=== PATIENT | male | born 1945 | race Caucasian/White ===

== ENCOUNTER 2019-11-02 14:08 | Outpatient (CLI) | payer MEDICARE, SELFPAY ==
--- NOTE | 2019-11-02 14:15 | CT_ITS ---
WS: [id number] CT ABDOMEN PELVIS TECHNIQUE: Noncontrast CT of the abdomen and contrast-enhanced CT of the abdomen and pelvis with jess nal and sagittal reformatted images. CLINICAL INFORMATION: HEMATURIA COMPARISON: None. DLP: 2831.[address] scans at [facility] use at least one of these dose optimization techniques: automat ed exposure control; mA and/or kV adjustment per patient size (includes targeted exams where dose is matched to clinical indication); or iterative reconstruction. FINDINGS: Mild diffuse fatty infiltration of the liver. Small right hepatic cyst measuring 7 mm. Normal portal vein and splenic vein. Normal spleen. Normal GE junction. Fatty atrophy of the pancreas. Slight bibas ilar atelectasis. Adrenal glands are normal. No hydronephrosis. Small bilateral renal cysts. Renal co rtical atrophy bilaterally. Incidental retroaortic left renal vein. No periaortic lymphadenopathy. Aortic calcification. Calcified enlarged prostate measuring 5.9 x 5.1 CM. Sigmoid diverticulosis. No evidence of acute diverticulitis. Normal renal parenchymal enhancement. Normal excretion on the delayed images. Normal ureters. Unremar kable bladder. Advanced spondylitic changes lumbar spine with disc space narrowing L1-L5. CT/CT abdomen pelvis wo/w [id number] IMPRESSION: 1. Liver is normal in appearance. Small right hepatic cyst measuring 7 mm. 2. Normal renal parenchymal enhancement with cortical atrophy. Normal excretio n on the delayed images. 3. Ureters are normal. 4. Enlarged calcified prostate measuring 5.9 x 5.1 CM. Recommend correlation P SA. 5. No abdominal or pelvic lymphadenopathy. 6. Diverticulosis. No evidence of acute diverticulitis. 7. Advanced spondylitic changes lumbar spine.
[2019-11-02 15:11] LABS: Blood Urea Nitrogen 15 mg/dL (8-23)
[2019-11-02] MEDS: iohexol 300 mg/mL 100 mL Btl IV (15:20)
== END 2019-11-02 14:09 | disposition home or self-care (01) ==
LOC: RADWPI 14:12
PROVIDERS: Radiology Neuroradiology; Family Provider Emergency Medicine Emergency Medical Services; PCP Emergency Medicine Emergency Medical Services; Visit Provider Physician Assistant
DX: Q55.4 Other congenital malformations of vas deferens, epididymis, seminal vesicles and prostate (principal); K57.90 Diverticulosis of intestine, part unspecified, without perforation or abscess without bleeding; M47.896 Other spondylosis, lumbar region; R31.9 Hematuria, unspecified; K76.89 Other specified diseases of liver; G31.9 Degenerative disease of nervous system, unspecified; N40.0 Benign prostatic hyperplasia without lower urinary tract symptoms
CPT/HCPCS: 74178; 82565; 84520; Q9967

== ENCOUNTER 2019-11-10 12:09 | Emergency (ER) | payer OTHER, MEDICARE, SELFPAY ==
[2019-11-10 12:41] VITALS: BP 148/75; PULSE 73; RESP 16; TEMP 36.7; O2SAT 96; BMI 31.7
--- NOTE | 2019-11-10 13:24 | XR_ITS ---
WS: [id number] Acute abdomen series, 11/10/2019 Clinical Data: constipation Comparison: None. Findings: In the chest there are no nodules, masses or effusions. The heart is normal. The pulmonary vascularity is not increased. The aortic arch and descending aorta show mild tortuosity No free air is seen beneath the diaphragms. No abnormal intra-abdominal masses or calcifications are seen. There is air in the stomach, small bowel and colon with scattered air-fluid levels in the small bowel and ascending colon. There is a large amount of fecal material throughout the colon. No obstru ction is seen. There is a dextroscoliosis with degenerative change and degenerative disc disease of t he lumbar spine. XR/XR acute abdomen series 31657 Impression: 1. Large amount of fecal material throughout the colon. 2. Moderate generalized ileus.
--- NOTE | 2019-11-10 14:53 | ED_ITS ---
Entered by Lesly Marshall, acting as scribe for Bruce Poe MD, [facility] Nov 10, 2019 12:09 HPI - General Adult General: Chief complaint: General Medical Stated complaint: constipation Time Seen by Provider: 11/10/19 14:47 Source: patient Mode of arrival: ambulatory Limitations: no limitations History of Present Illness: HPI narrative: 73 yo Male presents to ED with complaint of constipation. Pt states that this has been going on for the last several months. Pt states that he tried to get an appointment with the [place] doctor but they told him to come to the ED to get it figured out. Pt states that he takes Linzess. Pt states that his last bowel movement was Saturday around noon. MD complaint: Constipation Onset (ago): month(s) Location: abdomen Radiation: non-radiation Pain Consistency: intermittent Relieving factors: medication Exacerbating factors: none Associated symptoms: Deny chest pain, decreased appetite, dyspnea, headache(s), nausea, rash, palpitations or vomiting Treatments prior to arrival: none Review of Systems General: Reports: 10 or more systems reviewed and unremarkable except in HPI and below Const: Denies: fever, chills or body aches Eyes: Denies: change in vision or blurry vision ENMT: Denies: throat pain, enlarged tonsils, painful swallowing, hoarseness, mouth pain or swelling of lips/tongue Card: Denies: chest pain, palpitations, irregular heart rhythm, edema or swelling of feet/ankles Resp: Denies: shortness of breath, productive cough or non-productive cough GI: Reports: constipation; Denies: nausea or vomiting : Denies: flank pain, painful urination, urinary frequency, urinary urgency or urinary hesitancy Musc: Denies: neck pain, back pain or extremity swelling Skin/Breast: Denies: rash, itching or redness Neuro: Denies: headache, numbness in extremities or weakness in extremities Endo: Denies: excessive urination, excessive thirst or tired all the time PFS ED 2 PFSH: Social History Smoking and tobacco status: never smoked Physical Exam Const: COMMON NORMALS: no apparent distress, average body habitus, oriented x3 , no limitations, healthy appearing, alert and well nourished HENMT: COMMON NORMALS: normocephalic, head/scalp atraumatic and moist oral mucous membranes HEAD & SCALP: normocephalic and atraumatic Eye: COMMON NORMALS: PERRL, EOMs intact bilaterally, conjunctivae normal and no scleral icterus CONJUNCTIVA: Yes conjunctivae normal PUPIL: Yes PERRL Neck/C-Spine: COMMON NORMALS: full ROM, supple, no meningeal signs, no JVD and no carotid bruits Chest: COMMONS NORMALS: inspection of chest normal and palpation of chest normal Resp: COMMON NORMALS: normal respiratory effort, no retractions, no use of a ccessory muscles, clear to auscultation bilaterally and percussion normal AUSCULTATION: clear to auscultation bilaterally PERCUSSION: percussion normal Cardio: COMMON NORMALS: no JVD, regular rate, regular rhythm, S1 normal heart sound, S2 normal heart sound, no gallops, no clicks, no murmurs, no rub and peripheral pulses 2+ throughout RATE: regular rate RHYTHM: regular rhythm HEART SOUNDS: S1 normal and S2 normal PERIPHERAL PULSES: pulses 2+ throughout GI: COMMON NORMALS: normal to inspection, nondistended, normoactive bowel sounds, soft to palpation, non-tender, no hepatosplenomegaly, no masses and no bruits PALPATION: Yes soft and Yes no hepatosplenomegaly : COMMON NORMALS: Yes no CVA tenderness BLADDER/KIDNEY EXAM: Yes no CVA tenderness Back/Pelvis: COMMON NORMALS: no CVA tenderness Extremity: COMMON NORMALS: normal to inspection, full ROM, normal capillary refill, no calf tenderness and no pedal edema Neuro: COMMON NORMALS: oriented x3 SENSORIUM/ORIENTATION: Yes alert MENINGEAL SIGNS: Yes no meningeal signs Skin: COMMON NORMALS: no rashes or lesions noted, no wounds, skin turgor normal, no jaundice, no petechiae and no mottling GENERAL SKIN EXAM: no rashes or lesions noted and turgor normal Course Vital Signs: Vital signs: Vital Signs Temperature 98.0 F 11/10/19 12:41 Pulse Rate 67 11/10/19 15:21 Respiratory Rate 16 11/10/19 12:41 Blood Pressure 120/72 11/10/19 15:21 Pulse Oximetry 94 11/10/19 15:21 MDM - General Adult MDM Narrative: Medical decision making narrative: 73-year-old male who has chronic constipation. He called his primary care provider's office to ask for evaluation of the cause of the constipation and he was asked to come in here. He has no new complaints today. His examination is unremarkable. Abdominal x- ray shows increased fecal load. He was offered an enema here in the emergency department but the patient says he will go home and take Linzess which usually works for him. He is advised to ask his primary care provider to refer him to a vegetable picker for further evaluation of constipation. He voiced understanding and is in agreement with the plan Medical Records: Attestation: I reviewed the patient's medical records. Imaging Data^: XR Chest/Abdomen: Radiologist's impression: [place] [address] XRay Report Signed Patient: Diana Rico #: [id number] : 1946Acct#:[id number] Age/Sex: 73 / MADM Date: 11/10/19 Loc: ERRoom/Bed: Attending Dr: Ordering Provider/Ordering MD: Horacio Damon NP Date of Service: 11/10/19 Procedure(s): XR acute abdomen series [id number] Accession Number(s): [id number] Report Number: [id number] WS: [id number] Acute abdomen series, 11/10/2019 Clinical Data: constipation Comparison: None. Findings: In the chest there are no nodules, masses or effusions. The heart is normal. The pulmonary vascularity is not increased. The aortic arch and descending aorta show mild tortuosity No free air is seen beneath the diaphragms. No abnormal intra-abdominal masses or calcifications are seen. There is air in the stomach, small bowel and colon with scattered air-fluid levels in the small bowel and ascending colon. There is a large amount of fecal material throughout the colon. No obstruction is seen. There is a dextroscoliosis with degenerative change and degenerative disc disease of the lumbar spine. XR/XR acute abdomen series 97098 Impression: 1. Large amount of fecal material throughout the colon. 2. Moderate generalized ileus. Dictated By:Mayra Phillips MD Signed By:Mayra Phillips Date/Time:11/10/19 1421 DD/ 1419 Discharge Plan Discharge Patient Disposition: Home, Self-Care Clinical Impression: Constipation Qualifiers: Constipation type: other constipation type Qualified Code(s): K59.09 - Other constipation Condition: Stable Prescriptions: Continued simvastatin 80 mg Tablet 80 mg PO DAILY RF: 0 omeprazole 20 mg Capsule,Delayed Release(Dr/Ec) 20 mg PO DAILY RF: 0 citalopram 40 mg Tablet 40 mg PO DAILY RF: 0 enalapril maleate 20 mg Tablet 20 mg PO DAILY RF: 0 glipizide 10 mg Tablet 10 mg PO DAILY RF: 0 hydrocodone-acetaminophen 7.5-325 mg Tablet 1 tab PO TID PRN (Reason: Pain) RF: 0 metformin 1,000 mg Tablet 1,000 mg PO DAILY RF: 0 hydrochlorothiazide 25 mg Tablet 25 mg PO DAILY RF: 0 dicyclomine 10 mg Capsule 10 mg PO QID RF: 0 cholecalciferol (vitamin D3) [Vitamin D3] 50 mcg (2,000 unit) Capsule 50 mcg PO DAILY RF: 0 omega 2-vyu-ynq-fish oil [Fish Oil] 1,000 mg (120 mg-180 mg) Capsule 1 cap PO DAILY RF: 0 Linzess 72 mcg Capsule 72 mcg PO DAILY PRN (Reason: Stomach Upset) RF: 0 aspirin 81 mg Tablet,Delayed Release (Dr/Ec) 81 mg PO DAILY RF: 0 Discharge Orders: Discharge Order (Routine); Ordered 11/10/19 Ordered By: Bruce Poe Referrals: Sreekanth Nunez DO [Primary Care Provider] - 1-3 days (For referral to gastroenterology) Patient Instructions: Constipation (ED) Activity Restrictions/Additional Instructions: Return for any new or worsening symptoms. Follow-up with your primary care provider within 3 days for referral to a vegetable picker. They the specialists that deals with constipation and similar issues. Drink plenty of fluids to keep well-hydrated. Continue medications as prescribed. Discharge Date/Time: 11/10/19 15:21 Coding Level of Care Code ED Continuous Improvement Specialist for Chg Fwd Exam Comprehensive The documentation recorded by the Joanna mckeon Carmen, accurately reflects the service I personally performed and the decisions made by Lui mcfadden Adegoke I, MD, [facility] Nov 10, 2019 12:09
[2019-11-10 15:21] VITALS: BP 120/72; PULSE 67; O2SAT 94
== END 2019-11-10 15:21 | disposition home or self-care (01) ==
PROVIDERS: Emergency Provider Family Medicine; Family Provider Emergency Medicine Emergency Medical Services; PCP Emergency Medicine Emergency Medical Services
DX: K59.09 Other constipation (principal); K56.7 Ileus, unspecified
CPT/HCPCS: 74022; 99281; 99282

== ENCOUNTER 2020-06-10 10:51 | Emergency (ER) | payer OTHER, MEDICARE, SELFPAY ==
[2020-06-10 10:52] VITALS: BP 165/83; PULSE 72; RESP 18; TEMP 36.6; O2SAT 97; BMI 31.6
--- NOTE | 2020-06-10 13:02 | W.ED.ABDPA2 ---
HPI - Abdominal Pain General: Chief Complaint: Abdominal Pain Stated Complaint: flu symptoms Time Seen by Provider: 06/10/20 11:54 Source: patient Mode of arrival: ambulatory Limitations: no limitations History of Present Illness: HPI narrative: 74 yo male [facility]. [facility] and [facility] with them his chronic nausea and then also discussed with me his concern for exposure to COVID even though patient is asymptomatic [facility] advised patient to come to the emergency department for testing. Patient denies any nausea vomiting or abdominal pain. Patient denies any fever. Patient denies any chest pain or shortness of breath. Patient denies any generalized malaise. Patient denies any headache. Patient states he does not currently have any symptoms but is concerned about his exposure and is requesting testing. Associated Symptoms: Denies constipation, diarrhea, dysuria, fever(s), nausea, syncope and vomiting Review of Systems General: Reports: 10 or more systems reviewed and unremarkable except in HPI and below Const: Denies: fever(s) or body aches Eyes: Denies: change in vision or blurry vision ENMT: Denies: throat pain or odynophagia Card: Denies: chest pain, palpitations, irregular heart rhythm, lightheadedness or syncope Resp: Denies: dyspnea, productive cough, non-productive cough, wheezing, stridor, pain on inspiration, hemoptysis or chest congestion GI: Denies: abdominal pain, nausea, vomiting, diarrhea or constipation : Denies: flank pain, difficulty urinating, dysuria, urinary frequency or urinary urgency Musc: Denies: neck pain, back pain or extremity pain Skin/Breast: Denies: rash Neuro: Denies: headache(s) or dizziness Psych: Denies: anxiety, suicidal ideation or homicidal ideation [facility] ED PFSH: Social History Smoking and tobacco status: never smoked Physical Exam Const: COMMON NORMALS: no acute distress, average body habitus, patient oriented x3, no limitations, healthy appearing, alert and well nourished HENMT: COMMON NORMALS: normocephalic, atraumatic, hearing grossly normal bilaterally, external ears normal, EAC's normal, TM's normal bilaterally, Normal external nose present, Normal nasal mucous membranes and turbinates present, moist oral mucous membranes, oropharynx normal, dentition normal and gingiva normal HEAD & SCALP: normocephalic and atraumatic NOSE: Normal external nose present and Normal nasal mucous membranes and turbinates present EXTERNAL EAR: Yes external ears normal EXTERNAL AUDITORY CANAL: EAC's normal TYMPANIC MEMBRANE: TM's normal bilaterally Eye: COMMON NORMALS: Equal, round and reactive pupils present, EOMs intact bilaterally, conjunctivae normal, no scleral icterus, no papilledema, normal visual mcclellan by confrontation and fundi normal bilaterally CONJUNCTIVA: Yes conjunctivae normal PUPIL: Yes Equal, round and reactive pupils present DIRECT OPHTHALMOSCOPY: Yes no papilledema and Yes fundi normal bilaterally Neck/C-Spine: COMMON NORMALS: full ROM, no lymphadenopathy, supple, no meningeal signs, no JVD, Thyroid normal and No carotid bruits THYROID: Thyroid normal Lymph: LYMPHATIC: no lymphadenopathy noted Chest: COMMONS NORMALS: normal inspection of the chest, normal palpation of entire chest wall, normal inspection of the breasts and normal palpation of the breasts Resp: COMMON NORMALS: normal respiratory effort, No retractions, No use of accessory muscles, clear to auscultation bilaterally and percussion normal AUSCULTATION: clear to auscultation bilaterally PERCUSSION: percussion normal Cardio: COMMON NORMALS: no JVD, regular rate, regular rhythm, S1 normal heart sound present, S2 normal heart sound present, No gallops present (Cardio), No clicks present (Cardio), No murmurs present (Cardio), No rub (Cardio) and Peripheral pulses 2+ throughout RATE: regular rate RHYTHM: regular rhythm HEART SOUNDS: S1 normal heart sound present and S2 normal heart sound present PERIPHERAL PULSES: Peripheral pulses 2+ throughout GI: COMMON NORMALS: Normal to inspection, nondistended, normoactive bowel sounds present, Soft to palpation, non-tender, No hepatosplenomegaly present, no masses and no bruits PALPATION: Yes Soft to palpation and Yes No hepatosplenomegaly present : COMMON NORMALS: Yes no CVA tenderness, Yes normal external exam, Yes Testes normal, Yes scrotum normal, Yes no scrotal swelling and Yes No hernias present BLADDER/KIDNEY EXAM: Yes no CVA tenderness Back/Pelvis: COMMON NORMALS: no CVA tenderness, thoracic and lumbar spine normal to inspection, no thoracic nor lumbar tenderness, thoraco-lumbar ROM normal and straight leg raise negative bilaterally Extremity: COMMON NORMALS: normal to inspection, full ROM, capillary refill normal, no joint enlargement, no clubbing, cyanosis or edema, no calf tenderness and no pedal edema Neuro: COMMON NORMALS: patient oriented x3 SENSORIUM/ORIENTATION: Yes alert MENINGEAL SIGNS: Yes no meningeal signs Psych: COMMON NORMALS: mental status grossly normal, Normal thought process present, cooperative, normal affect, speech normal, activity/motor behavior normal, denies hallucinations, denies homicidal ideation and denies suicidal ideation SPEECH: Yes normal speech THOUGHT PROCESS: Normal thought process present Skin: COMMON NORMALS: no rashes or lesions noted, no wounds, turgor normal, no jaundice, no petechiae and no mottling GENERAL SKIN EXAM: no rashes or lesions noted and turgor normal Course Vital Signs: Vital signs: Vital Signs Temperature 97.9 F 06/10/20 10:52 Pulse Rate 72 06/10/20 10:52 Respiratory Rate 18 06/10/20 10:52 Blood Pressure 165/83 06/10/20 10:52 Pulse Oximetry 97 06/10/20 10:52 MDM - Abdominal Pain MDM Narrative: Medical decision making narrative: 74 yo male patient [facility]. [facility] and discussed with them his chronic nausea and then also discussed with me his concern for exposure to COVID even though patient is asymptomatic [facility] advised patient to come to the emergency department for testing. Patient denies any nausea vomiting or abdominal pain. Patient denies any fever. Patient denies any chest pain or shortness of breath. Patient denies any generalized malaise. Patient denies any headache. Patient states he does not currently have any symptoms but is concerned about his exposure and is requesting testing. Patient is well-appearing nontoxic and in no acute distress. Patient has a normal adult physical exam. We did test patient for COVID I advised patient he needs to self quarantine until results of test are known return precautions advised home care instructions reviewed patient is medically cleared and appropriate for discharge Differential Diagnosis: Differential diagnosis abdominal pain: Likely abdominal pain, constipation and gastroenteritis Medical Records: Attestation: I reviewed the patient's medical records. Lab Data: Attestation: I reviewed the patient's lab results. Discharge Plan Discharge Patient Disposition: Home Clinical Impression: Close exposure to COVID-19 virus Condition: Stable Prescriptions: No Action simvastatin 80 mg Tablet 80 mg PO DAILY RF: 0 omeprazole 20 mg Capsule,Delayed Release(Dr/Ec) 20 mg PO DAILY RF: 0 citalopram 40 mg Tablet 40 mg PO DAILY RF: 0 enalapril maleate 20 mg Tablet 20 mg PO DAILY RF: 0 glipizide 10 mg Tablet 10 mg PO DAILY RF: 0 hydrocodone-acetaminophen 7.5-325 mg Tablet 1 tab PO TID PRN (Reason: Pain) RF: 0 metformin 1,000 mg Tablet 1,000 mg PO DAILY RF: 0 hydrochlorothiazide 25 mg Tablet 25 mg PO DAILY RF: 0 dicyclomine 10 mg Capsule 10 mg PO QID RF: 0 cholecalciferol (vitamin D3) [Vitamin D3] 50 mcg (2,000 unit) Capsule 50 mcg PO DAILY RF: 0 omega 6-olw-wqg-fish oil [Fish Oil] 1,000 mg (120 mg-180 mg) Capsule 1 cap PO DAILY RF: 0 Linzess 72 mcg Capsule 72 mcg PO DAILY PRN (Reason: Stomach Upset) RF: 0 aspirin 81 mg Tablet,Delayed Release (Dr/Ec) 81 mg PO DAILY RF: 0 Discharge Orders: Discharge Order (Routine); Ordered 06/10/20 Ordered By: Amber Holguin Referrals: Sreekanth Nunez, [Primary Care Provider] - Discharge Diet: Advance as tolerated Discharge Activity: Resume usual activity Activity Restrictions/Additional Instructions: Please self Quarantine until test results are confirmed We will call you with any positive results Please return with any concerning symptoms Discharge Date/Time: 06/10/20 13:13 Coding Level of Care Code ED Integration Analyst for Jacqueline Rubi
[2020-06-11 23:33] LABS: Quest SARS-CoV-2 RNA NOT DETECTED (NOT DETECTED)
--- NOTE | 2020-06-12 08:20 | PC.NURSE ---
Pt called and notified of negative COVID result.
== END 2020-06-10 13:13 | disposition home or self-care (01) ==
PROVIDERS: Emergency Provider Registered Nurse; PCP Emergency Medicine Emergency Medical Services
DX: Z20.818 Contact with and (suspected) exposure to other bacterial communicable diseases (principal); Z79.82 Long term (current) use of aspirin; Z79.84 Long term (current) use of oral hypoglycemic drugs
CPT/HCPCS: 12345; 87635; 99281; 99282

== ENCOUNTER 2021-01-10 13:02 | Outpatient (CLI) | payer OTHER, SELFPAY ==
--- NOTE | 2021-01-10 13:00 | MR_ITS ---
WS: [id number] Exam: MR lumbar spine wo con* [id number] Date/Time of Exam: 01/10/2021 1:09 PM Reason For Exam: LOW BACK PAIN W R LEG RADICULOPATHY The lumbar spine is evaluated in the sagittal and axial planes with multiple imaging sequences. There is moderately severe spinal canal stenosis at the L2-3 disc level secondary to posterior disc b ulge osteophyte complex. There is moderate spinal canal stenosis at the L4-5 disc level. There is mil d spinal canal stenosis noted at the L1-2 and L3-4 disc levels. There is bilateral neural foraminal s tenosis at L5-S1. The remaining neural foramina demonstrated no significant stenosis. Advanced degene rative disc changes at all levels and spondylosis. The conus medullaris and cauda equina are unremark able. Advanced facet DJD at all levels. Dextroscoliosis of the lumbar spine. Small lipoma in the left psoas muscle. The paraspinal and retroperitoneal soft tissue structures are otherwise unremarkable. MR/MR lumbar spine wo con* [id number] IMPRESSION: 1. Moderately severe spinal canal stenosis at L2-3. 2. Moderate spinal canal stenosis at the L4-5 disc level. Mild spinal canal rashad nosis at L1-2 and L3-4. 3. Bilateral neural foraminal stenosis at L5-S1. 4. Advanced degenerative changes and scoliosis.
== END 2021-01-10 13:03 | disposition home or self-care (01) ==
PROVIDERS: PCP Emergency Medicine Emergency Medical Services; Visit Provider Emergency Medicine Emergency Medical Services
DX: M54.16 Radiculopathy, lumbar region (principal); M48.061 Spinal stenosis, lumbar region without neurogenic claudication; M48.07 Spinal stenosis, lumbosacral region
CPT/HCPCS: 72148

== ENCOUNTER → 2021-02-14 15:35 | Outpatient (BNVA) | payer OTHER, SELFPAY | PROVIDERS: PCP Emergency Medicine Emergency Medical Services; Referring Provider Emergency Medicine Emergency Medical Services; Visit Provider Orthopaedic Surgery | DX: M48.062 Spinal stenosis, lumbar region with neurogenic claudication | CPT/HCPCS: 72120 ==

== ENCOUNTER → 2021-04-12 10:25 | Outpatient (BNVA) | payer OTHER, SELFPAY | PROVIDERS: PCP Emergency Medicine Emergency Medical Services; Visit Provider Orthopaedic Surgery | DX: Z01.818 Encounter for other preprocedural examination (principal); Z20.822 Contact with and (suspected) exposure to COVID-19 | CPT/HCPCS: 87635 ==

== ENCOUNTER 2021-04-17 08:36 | Day surgery (SDC) | payer OTHER, SELFPAY ==
[2021-04-13 10:27] VITALS: BMI 31.0
--- NOTE | 2021-04-13 10:33 | ECG_ITS ---
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 Measurements Intervals [place] Rate: 65 P: 70 ND: 168 QRS: 15 QRSD: 102 T: 41 QT: 402 QTc: 419 Interpretive Statements SINUS RHYTHM No previous ECG available for comparison Electronically Signed On 04-13-2021 14:46:27 CDT by Frandy Garcia M.D. [email or web address]
[2021-04-13 11:07] LABS: Basophils % 0.3 %; Eosinophils # 0.7 10^3/uL (0.0-0.8); Eosinophils % 10.7 %; Hematocrit 43.7 % (42.0-52.0); Hemoglobin 14.2 g/dL (11.7-16.6); Lymphocytes # 1.4 10^3/uL (0.8-4.8); Lymphocytes % 21.9 %; Mean Corpuscular HGB Conc 32.5 g/dL (30.0-36.0); Mean Corpuscular Hemoglobin 28.9 pg (28.0-34.0); Mean Platelet Volume 9.7 fL (7.4-10.4); Monocytes # 0.5 10^3/uL (0.2-0.9); Monocytes % 8.3 %; Neutrophils % 58.3 %; Nucleated Red Blood Cells % 0 %; Platelet Count 285 10^3/cmm (130-400); Red Blood Count 4.91 10^6/uL (4.1-5.3); Red Cell Distribution Width 12.5 % (12.1-15.1); White Blood Count 6.5 10^3/uL (4.0-10.0)
--- NOTE | 2021-04-13 11:09 | P.ANESASSM_ITS ---
Pre-Anesthetic Assessment Pre-Anesthetic Assessment: Height/Weight: Height 1.75 m Weight 95.254 kg Preop Diagnosis: lumbar stenosis Proposed Procedure: Operation Date: 04/17/21 07:00 Proposed Procedures p Lumbar Spine Decompression L4/5 5/S1 M48.062(Not Applicable) - Trent Ndiaye, DO Was Beta Monique taken within 24 hours: N/A Was Clonidine taken within 24 hours: N/A Social: Social History: No alcohol and No tobacco Exam: Pre-Anes Outpt Exam: alert, oriented x 3, clear to auscultation bilaterally and regular rate & rhythm Airway: Submandibular: WNL Cervical ROM: WNL MP: 2 Dentition: Chipped Additional comments: Poor dentition CV/HEM: CV/HEM: HTN GI: GI: GERD Metabolic: Metabolic: DM and Hyperlipidemia Musc/skel: Musc/skel: Lower Back Pain Anesthetic Plan: ASA status: 3 Anesthesia: General Risk of > 500 ml blood loss (7ml/kg in children): No PFSH Anesthesia PFSH: Medical History Depression Diabetes HTN (hypertension) Hyperlipidemia Family History Other Diabetes Social History Smoking and tobacco status: never smoked Data Anesthesia CBC & Chem 7: 04/13/21 10:55 04/13/21 10:55 Other Labs: Laboratory Results - last 48 hr 04/13/21 10:55 WBC 6.5 RBC 4.91 Hgb 14.2 Hct 43.7 MCV 89.0 MCH 28.9 MCHC 32.5 RDW 12.5 Plt Count 285 MPV 9.7 Neut % (Auto) 58.3 Lymph % (Auto) 21.9 [place] % (Auto) 8.3 Eos % (Auto) 10.7 Baso % (Auto) 0.3 Neut # (Auto) 3.80 Lymph # (Auto) 1.4 [place] # (Auto) 0.5 Eos # (Auto) 0.7 Baso # (Auto) 0.0 Nucleated RBC % (auto) 0 Nucleated RBCs # 0.0 Cardiac Studies: No Data to Display
[2021-04-13 11:27] LABS: Anion Gap 14.2 (5-19); Blood Urea Nitrogen 24 mg/dL (8-23); Calcium 8.2 mg/dL (8.5-10.5); Carbon Dioxide 24 mmol/L (22-29); Chloride 101 mmol/L (98-107); Glucose 202 mg/dL (65-115); Osmolality Calculated 290 mOsm/kg (285-295); Potassium 4.2 mmol/L (3.5-5.1); Sodium 135 mmol/L (136-145)
[2021-04-17] VITALS (7 sets, daily range): BP systolic 120–146; BP diastolic 75–95; PULSE 67–92; RESP 16–18; TEMP 36.4–36.7; O2SAT 92–100
--- NOTE | 2021-04-17 | XR_ITS ---
WS: [id number] Lumbar spine, C-arm fluoroscopy, 04/17/2021 Clinical Data: RAFI PICS Comparison: Lumbar spine, 02/14/2021. Findings: Dr. Ndiaye performed a lumbar decompression at L4-L5 and L5-S1. XR/XR lumbar spine 1V [id number] Impression: Lumbar decompression at L4-L5 and L5-S1.
--- NOTE | 2021-04-17 | SCC_ITS ---
Procedure Done: 1. Right L4/5 laminectomy with partial facetecomy 2. Right L5/S1 laminectomy with partial facetectomy 25.2 seconds of fluoroscopic guidance, for a cumulative dose of 12.73 mGy, was provided to Dr. Ndiaye by the radiology department. C-arm images of the lumbar spine were saved for the patient's permanent record. [facility]
[2021-04-17] MEDS: sodium chloride 0.9% 1,000 ML 30 ML IV (09:15)
[2021-04-17 09:22] LABS: Glucose Point of Care 133 mg/dL (70-110)
--- NOTE | 2021-04-17 09:50 | PM.HP ---
Providers/Chief Complaint Primary Care Provider: Sreekanth Nunez DO Chief Complaint: lumbar decompression History of Present Illness Urban Rico is a 75 year old male low back pain that started years ago. Chief Complaint: low back pain Onset: years Duration: years Characteristics: numbness,tingling Severity: 4/10 Location: low back Radiating symptoms: right lateral leg into foot Aggravating factors: positional Alleviating factors: movement, hydrocodone Neuro deficits: denies weakness, incontinence of bowel/bladder, saddle anesthesia. Prior tx: Physical therapy at [facility] with no change, Injection 5 years ago with no relief Review of Systems Narrative: General ROS: negative for weight changes, fever ENT ROS: negative for nasal congestion, drainage or bleeding, sore throat, dysphagia or ear pain Eyes: PERRL Hematological and Lymphatic ROS: negative for swollen glands or abnormal bleeding Endocrine ROS: negative for polyuria/polydpsia or new changes in weight Respiratory ROS: negative for cough, shortness of breath, or wheezing Cardiovascular ROS: negative for chest pain or dyspnea on exertion Gastrointestinal ROS: negative for reflux, abdominal pain, change in bowel habits, or black or bloody stools Musculoskeletal ROS: negative for back pain, neck pain, or joint pain or swelling except for current problem Neurological ROS: negative for TIA or stoke symptoms Skin: no rashes Medications/Allergies Home Medications Medication Instructions Recorded Confirmed Last Taken Type aspirin 81 mg PO DAILY 11/10/19 04/17/21 04/16/21 History cholecalciferol (vitamin D3) 50 mcg PO DAILY 11/10/19 04/17/21 04/15/21 History [Vitamin D3] citalopram 40 mg PO DAILY 11/10/19 04/17/21 04/15/21 History dicyclomine 10 mg PO QID 11/10/19 04/17/21 04/15/21 History enalapril maleate 20 mg PO DAILY 11/10/19 04/17/21 04/16/21 History glipizide 10 mg PO BID 11/10/19 04/17/21 04/16/21 History hydrochlorothiazide 25 mg PO DAILY 11/10/19 04/17/21 04/16/21 History hydrocodone-acetaminophen 1 tab PO TID PRN 11/10/19 04/17/21 04/16/21 History metformin 500 mg PO BID 11/10/19 04/17/21 04/16/21 History omeprazole 20 mg PO DAILY 11/10/19 04/17/21 04/16/21 History simvastatin 80 mg PO DAILY 11/10/19 04/17/21 04/13/21 History Allergies Allergy/AdvReac Type Severity Reaction Status Date / Time No Known Allergies Allergy Verified 04/13/21 10:21 PFSH Acute PFSH: Medical History Depression Diabetes HTN (hypertension) Hyperlipidemia Family History Other Diabetes Social History Smoking and tobacco status: never smoked Vitals/I&O/Wt Last Vital Signs Temp 98.1 F 04/17/21 09:01 Pulse 90 04/17/21 09:01 Resp 18 04/17/21 09:01 BP 146/82 04/17/21 09:01 Pulse Ox 97 04/17/21 09:01 Physical Exam Narrative: EXAM NARRATIVE: ONSTITUTIONAL: The patient is a normal appearing [] in no apparent distress. GENERAL: Patient in no acute distress. CARDIAC: Regular rate and rhythm. CHEST: Normal inspiratory effort, normal respiratory rate. ABDOMEN: Soft and nontender. SKIN: Clear, warm and intact. NEURO?PSYCH: The patient is alert and oriented to person, place and time. Sensorv /SILT Motor StrengthShoulder abduction C5 5/5Wrist extension C6 5/5Elbow extension C7 5/5Hand Gravity Flow Irrigator C8 5/5Finger abduction T15/5 Radial/ Ulnar/ Median n intact LowerSensory (SILT)Motor StrengthHin flexion L2/3Ant/inner thigh 5/5Hip adduction L2/3 5/5Knee extension L4 Lat thigh, 5/5Toe dorsiflexion L5 5/5Ankle dorsiflexion L5/ [id number] flexion S1 5/5 DTRBleeps 2+Triceps 2+Brachioradialis 2+Patellar 2+Achilles 2+ MUSCULOSKELETAL: [] UPPEREXTREMITIES: The patient had full active ROM in fingers, wrist, elbow, and shoulder. The patient demonstrated ability to fully flex/extend/abduct/adduct fingers, make ok sign, cross 2nd/3rd digits, extend 1st digit fully.. Radial pulse 2+, CR<2 seconds. LOWER EXTREMITIES: Pt has full, active ROM of toes, ankle, knee, and hip. Dorsalis pedis/posterior tibialis pulses 2+, CR<2 seconds. SPINE: Skin warm, dry, intact. Data : 04/13/21 10:55 04/13/21 10:55 A&P Assessment and plan (1) Lumbar stenosis with neurogenic claudication: MIS decompression Status: Acute Attestations Medical Necessity Statement*: failed conservative tx Coding Level of Care Code Acute Miter Cutter for Chg Fwd Diagnoses Lumbar stenosis with neurogenic claudication M48.062
--- NOTE | 2021-04-17 09:52 | W.PM.OPSUD ---
Surgery/Procedure H&P Update DATE OF PROCEDURE: April 17, 2021 DATE H&P PERFORMED: 04/17/21 H&P UPDATE INFORMATION: I have reviewed H&P completed within last 30 days, I have examined patient prior to procedure and No changes to prior documentation PREOP DIAGNOSIS: lumbar stenosis PLANNED PROCEDURE: Operation Date: 04/17/21 10:10 Proposed Procedures p Lumbar Spine Decompression L4/5 5/S1 M48.062(Not Applicable) - Trent Ndiaye DO
--- NOTE | 2021-04-17 11:43 | PM.OP ---
Operative Report Date of procedure: April 17, 2021 Pre-op Diagnosis: lumbar stenosis Post-op diagnosis: same Procedure Done: 1. Right L4/5 laminectomy with partial facetecomy 2. Right L5/S1 laminectomy with partial facetectomy Surgeon: Trent Ndiaye Anesthesia: General Estimated blood loss (mL): 5 Condition: stable Disposition: PACU Procedure: 1. Right L4/5 laminectomy with partial facetecomy 2. Right L5/S1 laminectomy with partial facetectomy Patient is brought to the operative suite. After undergoing anesthesia they are placed in the supine position. All areas of impingement are well padded. Patient is then prepped and draped in the normal sterile fashion. A skin incision is made over the L4/5 level. This is confirmed under c-arm guidance. A series of dilators are passed and the tubular retractor is docked on the L4 lamina. A bovie is used to clear the soft tissue off the lamina and the L 4/5 facet joint. A high speed tolu is then used to perform the laminectomy and take down the medial aspect of the L 4/5 facet joint. A kerrison rongeure was then used to take down the remaining lamina and smooth the edge of the laminectomy up to the point where the ligamentum flavum attaches. Attention was then brought to the medial aspect of the facet joint. The remaining medial aspect of the superior and inferior aspect of the facet joint were taken down with the kerrison from the pedicle of L4 to L 5. The facet joint had significant hypertrophy. Attention was then brought to the Ligamentum Flavum. The ligament was taken down from the lamina of L4 to L5 and out medially to the remaining facet joint. The ligament was thick and calcified. The dura was then exposed. The dura was in good repair. The L4 nerve was then traced with a curette out the L4/5 foramen and found to be adequately decompressed. The L5 nerve was traced with a curette around the L5 pedicle. The lateral recess was opened with a kerrison helping to further decompress the L5 nerve. A skin incision is made over the L5/S1 level. This is confirmed under c-arm guidance. A series of dilators are passed and the tubular retractor is docked on the L5 lamina. A bovie is used to clear the soft tissue off the lamina and the L 5/S1 facet joint. A high speed tolu is then used to perform the laminectomy and take down the medial aspect of the L 5/S1 facet joint. A kerrison rongeure was then used to take down the remaining lamina and smooth the edge of the laminectomy up to the point where the ligamentum flavum attaches. Attention was then brought to the medial aspect of the facet joint. The remaining medial aspect of the superior and inferior aspect of the facet joint were taken down with the kerrison from the pedicle of L5 to S1. The facet joint had significant hypertrophy. Attention was then brought to the Ligamentum Flavum. The ligament was taken down from the lamina of L5 to S1 and out medially to the remaining facet joint. The ligament was thick and calcified. The dura was then exposed. The dura was in good repair. The L5 nerve was then traced with a curette out the S1 foramen and found to be adequately decompressed. The s1 nerve was traced with a curette around the S1 pedicle. The lateral recess was opened with a kerrison helping to further decompress the S1 nerve. Wound is then irrigated copiously with saline and surgiflo is used to stop any bleeding. The tubular retractor is removed and the wound is closed with vicryl and monocryl suture. Glue is then used to protect the wound. A sterile dressing is then placed. Patient was then placed in the supine position and transferred to the PACU in stable condition.
--- NOTE | 2021-04-17 19:30 | ANE.PACU2 ---
Inpatient post-anesthesia follow up: Airway intact: Yes Vital signs: Temperature 97.6 F Pulse Rate 67 Respiratory Rate 18 Blood Pressure 124/75 Pulse Oximetry 97 Oxygen Delivery Me thod Room Air Oxygen Flow Rate 6 Fraction of Inspir ed Oxygen Hydration adequate: Yes Nausea and vomiting: No Pain level: 2 Mental status: Baseline
== END 2021-04-17 13:03 | disposition home or self-care (01) ==
PROVIDERS: Anesthesiology; PCP Emergency Medicine Emergency Medical Services; Visit Provider Orthopaedic Surgery
PROC: (CPT 63005; principal; 2021-04-17 10:00)
DX: M48.062 Spinal stenosis, lumbar region with neurogenic claudication (principal); I10 Essential (primary) hypertension; K21.9 Gastro-esophageal reflux disease without esophagitis; E11.9 Type 2 diabetes mellitus without complications; E78.5 Hyperlipidemia, unspecified
CPT/HCPCS: 63047; 63048; 36415; 36416; 72020; 76000; 80048; 82962; 85025; 93005; J0690; J1100; J2405; J2704; J2710; J3010; J3490; J7030

== ENCOUNTER → 2021-09-06 09:46 | Outpatient (BNVA) | payer OTHER, SELFPAY | PROVIDERS: PCP Emergency Medicine Emergency Medical Services; Referring Provider Emergency Medicine Emergency Medical Services; Visit Provider Specialist | DX: M19.011 Primary osteoarthritis, right shoulder (principal) | CPT/HCPCS: 73030 ==

== ENCOUNTER 2021-09-27 11:34 | Emergency (ER) | payer OTHER, MEDICARE, SELFPAY ==
[2021-09-27 12:22] VITALS: BP 149/54; PULSE 92; RESP 18; TEMP 36.8; O2SAT 96; BMI 30.8
--- NOTE | 2021-09-27 12:55 | ED_ITS ---
HPI - Animal Bite General: Chief Complaint: Animal Bite Stated Complaint: dog bite left leg Time Seen by Provider: 09/27/21 12:36 History of Present Illness: HPI narrative: Patient presents with a dog bite to his left thigh that occurred earlier today via the neighbors pit bull. Patient states that he is familiar with his dog and that they at the neighbor's house raises dogs and the dog does not have any rabid symptoms presently. Patient has not reported it to the [facility]'s office as of this time. He does live in [facility] Patient did go to the [facility] and they sent him here complaint: animal bite Onset (ago): hour(s) Animal: dog Description of animal: household pet and immunizations unknown Mechanism: bite Location - Extremities: Left: thigh Associated symptoms: Reports no associated symptoms; Deny chills or fever(s) Review of Systems Const: Denies: fever(s) or chills Skin/Breast: Reports: other (Dog bite left thigh occurred today) Psych: Denies: anxiety [facility] PFSH: Medical History Depression Diabetes HTN (hypertension) Hyperlipidemia Family History Other Diabetes Social History Smoking and tobacco status: never smoked Physical Exam Const: COMMON NORMALS: no acute distress GENERAL APPEARANCE: cooperative Resp: COMMON NORMALS: normal respiratory effort Psych: COMMON NORMALS: mental status grossly normal Skin: OTHER: Patient has abrasion/puncture wounds to that resembles a small bite to the left thigh. Appear to be superficial puncture wounds to the thigh. No active bleeding. Neurovascular status intact able to move the leg without difficulty. No bruising noted Course Vital Signs: Vital signs: Vital Signs Temperature 98.3 F 09/27/21 12:22 Pulse Rate 92 09/27/21 12:22 Respiratory Rate 18 09/27/21 12:22 Blood Pressure 149/54 09/27/21 12:22 Pulse Oximetry 96 09/27/21 12:22 MDM - Animal Bite MDM Narrative: Medical decision making narrative: Patient was encouraged to go straight to [facility]'s office and report dog bite to them and that also the had the dog observed for 10 days. Patient declined rabies shots at this time. Discharge Plan Discharge Patient Disposition: Home Clinical Impression: Dog bite Qualifiers: Encounter type: initial encounter Qualified Code(s): W54.0XXA - Bitten by dog, initial encounter Condition: Stable Prescriptions: New cephalexin 500 mg capsule 500 mg PO Q8H 7 Days Qty: 21 RF: 0 No Action simvastatin 80 mg Tablet 80 mg PO DAILY RF: 0 omeprazole 20 mg Capsule,Delayed Release(Dr/Ec) 20 mg PO DAILY RF: 0 citalopram 40 mg Tablet 40 mg PO DAILY RF: 0 enalapril maleate 20 mg Tablet 20 mg PO DAILY RF: 0 glipizide 10 mg Tablet 10 mg PO BID RF: 0 hydrocodone-acetaminophen 7.5-325 mg Tablet 1 tab PO TID PRN (Reason: Pain) RF: 0 metformin 1,000 mg Tablet 500 mg PO BID RF: 0 hydrochlorothiazide 25 mg Tablet 25 mg PO DAILY RF: 0 dicyclomine 10 mg Capsule 10 mg PO QID RF: 0 cholecalciferol (vitamin D3) [Vitamin D3] 50 mcg (2,000 unit) Capsule 50 mcg PO DAILY RF: 0 aspirin 81 mg Tablet,Delayed Release (Dr/Ec) 81 mg PO DAILY RF: 0 Discharge Orders: Discharge ED (Routine); Ordered 09/27/21 Ordered By: Hilario Nogueira Referrals: Sreekanth Nunez DO [Primary Care Provider] - Discharge Diet: Usual diet Discharge Activity: Resume usual activity Patient Instructions: Animal Bite (ED) Activity Restrictions/Additional Instructions: Clean wound with soap and water daily. Take antibiotics as directed. Go directly to [facility]'s office and report the dog bite to them. Discussed with neighbors and the [facility] about watching the dog for next 10 days to observe for any rapid symptoms. Follow-up your primary care if worsening symptoms or return here. Coding Level of Care Code ED Legal Billing Coordinator for Jacqueline Rubi
[2021-09-27] MEDS: tetanus-diphtheria tox (adult) 0.5 mL SDV IM (13:43)
[2021-09-27 14:20] VITALS: BP 146/60; PULSE 87; RESP 18; TEMP 36.8; O2SAT 98
== END 2021-09-27 14:21 | disposition home or self-care (01) ==
PROVIDERS: Emergency Provider Nurse Practitioner Family; PCP Emergency Medicine Emergency Medical Services
DX: S71.152A Open bite, left thigh, initial encounter (principal); W54.0XXA Bitten by dog, initial encounter; Z79.84 Long term (current) use of oral hypoglycemic drugs; Z79.82 Long term (current) use of aspirin; E11.9 Type 2 diabetes mellitus without complications; I10 Essential (primary) hypertension; E78.5 Hyperlipidemia, unspecified; Z23 Encounter for immunization
CPT/HCPCS: 90471; 90714; 99283

== ENCOUNTER → 2023-10-10 10:43 | Outpatient (BNVA) | payer OTHER, SELFPAY | PROVIDERS: PCP Emergency Medicine Emergency Medical Services; Visit Provider Nurse Practitioner Family | DX: D22.5 Melanocytic nevi of trunk (principal); L57.0 Actinic keratosis; L57.8 Other skin changes due to chronic exposure to nonionizing radiation; L82.1 Other seborrheic keratosis; L81.4 Other melanin hyperpigmentation | CPT/HCPCS: 17000; 99213 ==

== ENCOUNTER 2023-10-18 06:36 | Outpatient (CLI) | payer OTHER, SELFPAY ==
--- NOTE | 2023-10-18 07:13 | MR_ITS ---
WS: [id number] MRI THORACIC SPINE WITHOUT CONTRAST TECHNIQUE: Sagittal T1, T2 and STIR imaging. Axial T2 imaging. Noncontrast imaging obtained. CLINICAL INFORMATION: MID TO LOW BACK PAIN WORSENING COMPARISON: None. FINDINGS: Mild thoracic curve. Slight anterolisthesis C7 on T1 and T3 on T4. No acute compression. Mild disc bu lging in the mid and lower thoracic spine. Disc base narrowing worse at T7-8. Tiny shallow protrusion s T6-T7 and T7-T8. Small central protrusion T12-L1. Mild disc bulging T1-22-3. No high-grade central canal stenosis. Cord signal is normal. Adrenal glands are normal. Moderate facet arthropathy lower th oracic spine. Normal caliber thoracic aorta. Mild bilateral T1-2 and T2-3 foraminal narrowing. Mild RIGHT T10-11, T11-12, and moderate RIGHT T12-L1 foraminal narrowing. Small opacity partially visualized in the LEFT lower lobe measuring 1.6 cm. This could further evalua te with chest CT. IMPRESSION: 1. Mild thoracic curve. No acute compression. No high-grade central canal stenosis. 2. Cord signal is normal. 3. Mild RIGHT T10-11, T11-12, and moderate RIGHT T12-L1 foraminal narrowing. 4. Moderate facet arthropathy lower thoracic spine. 5. Mild central canal stenosis T12-L1 with a small central protrusion. 6. Small opacity partially visualized in the LEFT lower lobe measuring 1.6 cm. This could further ev aluate with chest CT.
--- NOTE | 2023-10-18 07:13 | MR_ITS ---
WS: [id number] MRI LUMBAR SPINE NONCONTRAST TECHNIQUE: Sagittal T1, T2 and STIR imaging. Axial T1 and T2 imaging. CLINICAL INFORMATION: MID TO LOW BACK PAIN WORSENING COMPARISON: MRI 01/10/2021 FINDINGS: Mild lumbar curve. No acute compression. Advanced spondylitic changes lumbar spine progress ed compared to 2020. Disc space narrowing throughout the lumbar spine. Slight retrolisthesis L1 on L2 L2 on L3 and L3 on L4. Advanced disc base narrowing T12-L1 has progressed compared to previous with disc desiccation and endplate degenerative changes. Small disc protrusions at T12-L1, L1-L2, L2-L3. Mild disc space narrowing in the cervical spine hydrological technical officer imaging at C3-C4 C4-C5 and C5-C6. This could fu rther evaluated with cervical spine MRI. T12-L1: Slight anterolisthesis. Disc bulging with a central protrusion at this level results in moder ate central canal stenosis progressed compared to previous with impingement on the RIGHT greater than LEFT subarticular recess. Moderate facet arthropathy. Severe RIGHT and mild LEFT bony foraminal narr owing. L1-L2: Disc desiccation with mild disc osteophytic ridging. Moderate central canal stenosis progresse d compared to previous. Impingement of the subarticular recess. Moderate facet arthropathy. Mild bila teral foraminal narrowing. L2-L3: RIGHT paracentral disc protrusion with severe central canal stenosis slightly progressed ryan red to previous. Impingement subarticular recess and traversing L3 nerve roots. Severe LEFT and mild RIGHT foraminal narrowing. Moderate facet arthropathy with ligamentum flavum hypertrophy. L3-L4: Moderate to severe central canal stenosis progressed compared to previous. Impingement constance ing L4 nerve roots. Moderate bilateral foraminal narrowing. Moderate facet arthropathy ligamentum fla vum hypertrophy. L4-L5: Mild disc bulging with impingement subarticular recess bilaterally. Moderate facet arthropathy . Moderate bilateral foraminal narrowing worse on the RIGHT. L5-S1: Disc osteophyte complex with endplate ridging. Slight anterolisthesis. Impingement traversing S1 nerve roots with advanced facet arthropathy. Moderate to severe bilateral foraminal narrowing. 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 Visualized pelvic bony structures: Normal. Paravertebral soft tissues: Normal. IMPRESSION: 1. Advanced spondylitic changes progressed compared to 2020. 2. Disc desiccation with endplate degenerative changes at T12-L1 has progressed compared to previous with new moderate central canal stenosis at this level with central disc bulging. 3. Moderate progressive canal stenosis L1-2. 4. Severe central canal stenosis L2-3 appears slightly progressed with central disc protrusion. 5. Moderate central canal stenosis L3-4 also appears slightly progressed. 6. Mild central canal stenosis L4-5 progressed compared to previous 7. Multilevel moderate to severe foraminal narrowing described above worse at RIGHT T12-L1, LEFT L2- 3, bilateral L4-5 and RIGHT L5-S1. 8. Disc desiccation at T12-L1 and L5-S1 has significantly progressed compared to previous.
== END 2023-10-18 06:37 | disposition home or self-care (01) ==
LOC: RAD 06:37
PROVIDERS: PCP Emergency Medicine Emergency Medical Services; Visit Provider Emergency Medicine Emergency Medical Services
DX: M48.05 Spinal stenosis, thoracolumbar region (principal); M47.814 Spondylosis without myelopathy or radiculopathy, thoracic region; M51.25 Other intervertebral disc displacement, thoracolumbar region; M47.817 Spondylosis without myelopathy or radiculopathy, lumbosacral region; M48.07 Spinal stenosis, lumbosacral region; M51.35 Other intervertebral disc degeneration, thoracolumbar region; M51.26 Other intervertebral disc displacement, lumbar region
CPT/HCPCS: 72146; 72148

== ENCOUNTER → 2023-10-31 14:37 | Outpatient (BNVA) | payer OTHER, SELFPAY | PROVIDERS: PCP Emergency Medicine Emergency Medical Services; Referring Provider Emergency Medicine Emergency Medical Services; Visit Provider Orthopaedic Surgery | DX: M48.062 Spinal stenosis, lumbar region with neurogenic claudication (principal) | CPT/HCPCS: 99214 ==

== ENCOUNTER 2023-11-06 15:35 | Outpatient (CLI) | payer OTHER, SELFPAY ==
--- NOTE | 2023-11-06 15:40 | CT_ITS ---
WS: [id number] CT CHEST TECHNIQUE: Contrast enhanced CT of the chest with coronal and sagittal reformatted images. CLINICAL INFORMATION: CHEST OPACITY NOTED ON MRI THORACIC COMPARISON: MRI thoracic 10/18/2023 DLP: 419.[address] scans at [facility] use at least one of these dose optimization techniques: automated e xposure control; mA and/or kV adjustment per patient size (includes targeted exams where dose is matc hed to clinical indication); or iterative reconstruction. FINDINGS: Irregular slightly spiculated opacity LEFT lower lobe posteriorly measuring 1.8 x 1.1 cm. This has a solid appearance with irregular spiculated margins and suspicious for neoplasm. Recommend further brock luation with PET/CT.Additional slight hazy groundglass opacity RIGHT lower lobe may be infectious or inflammatory. Normal caliber thoracic aorta. Proximal main pulmonary arteries are normal. No mediastinal or hilar l ymphadenopathy. No axillary lymphadenopathy. Adrenal glands are normal. Normal GE junction. Mild thoracic curve. Hypertrophic changes thoracic spi ne. IMPRESSION: 1. Irregular spiculated opacity LEFT lower lobe posteromedially measuring 1.8 x 1.0 cm. This is inde terminant but suspicious for neoplasm. Recommend further evaluation with PET/CT. 2. Slight hazy groundglass opacity RIGHT lower lobe may be infectious or inflammatory. Recommend 3-6 -month follow-up chest CT. 3. No mediastinal or hilar lymphadenopathy. 4. No other acute findings.
[2023-11-06 16:00] LABS: Blood Urea Nitrogen 18 mg/dL (8-23)
[2023-11-06] MEDS: iohexol 350 mg/mL 100 mL Btl IV (16:04)
== END 2023-11-06 15:36 | disposition home or self-care (01) ==
LOC: RAD 15:35
PROVIDERS: PCP Emergency Medicine Emergency Medical Services; Visit Provider Emergency Medicine Emergency Medical Services
DX: Z01.89 Encounter for other specified special examinations (principal)
CPT/HCPCS: 71260; 82565; 84520; Q9967

== ENCOUNTER 2023-12-03 08:10 | Outpatient (CLI) | payer OTHER, SELFPAY ==
--- NOTE | 2023-12-03 | PETR_ITS ---
PROCEDURE INFORMATION: Exam: PET/CT Skull Base to Mid-thigh Exam date and time: 12/03/2023 9:15 AM Age: 77 years old Clinical indication: Solitary pulmonary nodule in the left lower lobe found on CT chest on 11/06/2023 LABS AND CLINICAL REPORTS: Glucose: 133 mg/dl Treatment strategy for malignancy (PET staging): Initial Staging (PI) TECHNIQUE: Imaging protocol: Following at least four-hour fasting and following the injection of radiopharmaceutical, low dose CT images were obtained. Then, PET images were obtained. Attenuation corrected images were constructed using the CT scan. Fused images of PET and CT were reviewed. The standardized uptake values (SUV) reported below are maximum values within a region of interest, expressed in gm/ml. Exam includes orbital meatal line to mid-thigh. Radiopharmaceutical: 13.27 mCi F-18 FDG (Fluorodeoxyglucose), IV. Time of imaging post radiopharmaceutical administration: 1 hour Injection site: Left antecubital vein COMPARISON: CT chest 11/06/2023, CT abdomen pelvis wo/w 11/02/2019 FINDINGS: Brain: Visualized brain has normal physiologic uptake. Pharynx: No abnormal uptake. Larynx: No abnormal uptake. Lungs, pleura and trachea: No abnormal uptake. 1.5 x 1.2 x 0.8 cm nodule with irregular margins in the superior segment of the left lower lobe on axial image 81 stable since 11/06/2023 is not FDG avid (1.1 SUV). No pleural effusion. Heart: Normal physiologic uptake. There is no cardiomegaly. Mild coronary artery calcification is present. There is no pericardial effusion. Mediastinal space: No abnormal uptake. Liver: No abnormal uptake. Gallbladder and bile ducts: No abnormal uptake. No calcified gallstones. Pancreas: No abnormal uptake. Spleen: No abnormal uptake. No splenomegaly. Adrenal glands: No abnormal uptake. No nodules. Kidneys and ureters: Normal physiologic uptake. No hydronephrosis. Stomach and bowel: Increased uptake in the long segment of the left colon is likely benign. There is mild diverticulosis in the sigmoid and descending colon with no signs of acute diverticulitis. Intraperitoneal and retroperitoneal spaces: No abnormal uptake. No ascites. Urinary bladder: Normal physiologic uptake. Reproductive: No abnormal uptake. The prostate is significantly enlarged (6.1 x 5.2 cm) with peripheral calcifications. Vasculature: No abnormal uptake. No aortic aneurysm. Lymph nodes: No abnormal uptake. No lymphadenopathy in the head, neck, chest, abdomen, pelvis, and extremities. Bones/joints: No abnormal uptake in the visualized axial and appendicular skeleton. Degenerative changes in the right shoulder. Soft tissues: No abnormal uptake in the visualized head, neck, chest, abdomen, pelvis, and extremities. PET/PET skulltothigh INITIAL [id number] IMPRESSION: 1.5 cm irregular shaped lung nodule in the superior segment of the left lower lobe is not FDG avid with low-grade uptake of 1.1 SUV.
== END 2023-12-03 08:11 | disposition home or self-care (01) ==
LOC: RAD 08:10
PROVIDERS: PCP Emergency Medicine Emergency Medical Services; Visit Provider Emergency Medicine Emergency Medical Services
DX: R91.1 Solitary pulmonary nodule (principal)
CPT/HCPCS: 78815; A9552

== ENCOUNTER → 2024-01-07 14:45 | Outpatient (BNVA) | payer OTHER, SELFPAY | PROVIDERS: PCP Emergency Medicine Emergency Medical Services; Referring Provider Emergency Medicine Emergency Medical Services; Visit Provider Internal Medicine Pulmonary Disease | DX: R91.1 Solitary pulmonary nodule (principal); R09.82 Postnasal drip | CPT/HCPCS: 99204 ==

== ENCOUNTER → 2024-02-11 10:38 | Outpatient (BNVA) | payer OTHER, SELFPAY | PROVIDERS: PCP Emergency Medicine Emergency Medical Services; Referring Provider Emergency Medicine Emergency Medical Services; Visit Provider Anesthesiology Pain Medicine | DX: M48.062 Spinal stenosis, lumbar region with neurogenic claudication (principal); M47.816 Spondylosis without myelopathy or radiculopathy, lumbar region; M19.011 Primary osteoarthritis, right shoulder | CPT/HCPCS: 99205 ==

== ENCOUNTER → 2024-02-19 14:36 | Outpatient (BNVA) | payer OTHER, SELFPAY | PROVIDERS: PCP Emergency Medicine Emergency Medical Services; Visit Provider Anesthesiology Pain Medicine | DX: M47.816 Spondylosis without myelopathy or radiculopathy, lumbar region (principal); M48.062 Spinal stenosis, lumbar region with neurogenic claudication | CPT/HCPCS: 64493; 64494; 64495; J1010; J3490 ==

== ENCOUNTER → 2024-03-02 10:31 | Outpatient (BNVA) | payer OTHER, SELFPAY | PROVIDERS: PCP Emergency Medicine Emergency Medical Services; Visit Provider Anesthesiology Pain Medicine | DX: M47.816 Spondylosis without myelopathy or radiculopathy, lumbar region (principal); M48.062 Spinal stenosis, lumbar region with neurogenic claudication; M19.011 Primary osteoarthritis, right shoulder | CPT/HCPCS: 99215 ==

== ENCOUNTER → 2024-10-12 08:07 | Outpatient (BNVA) | payer OTHER, SELFPAY | PROVIDERS: PCP Emergency Medicine Emergency Medical Services; Visit Provider Nurse Practitioner Family | DX: L81.4 Other melanin hyperpigmentation (principal); L82.1 Other seborrheic keratosis; D22.39 Melanocytic nevi of other parts of face; L57.0 Actinic keratosis; L57.8 Other skin changes due to chronic exposure to nonionizing radiation | CPT/HCPCS: 17000; 99213 ==